=== PATIENT | female | born 1955 | race Caucasian/White ===

== ENCOUNTER 2023-01-09 13:35 | Observation (INO) | payer MEDICARE ==
[~2023-01-09] VITALS: Ht 162.6 cm; Wt 73.0 kg
[2023-01-09] MEDS ORDERED: ACETAMINOPHEN 325 MG TAB PO PRN ×2 (14:30)
[2023-01-09] MEDS ORDERED: ONDANSETRON 4MG INJ IV PRN (14:30)
[2023-01-09] MEDS ORDERED: NITROGLYCERIN 0.4 MG SL TAB SL PRN (14:30)
[2023-01-09 14:33] LABS: BASOPHILS # (AUTO) 0.04 K/uL (0.00-0.20); BASOPHILS % (AUTO) 0.6 % (0.0-5.0); EOSINOPHILS # (AUTO) 0.05 K/uL (0.00-0.70); EOSINOPHILS % (AUTO) 0.7 % (0.0-8.0); HEMATOCRIT 39.5 % (36-48); IMMATURE GRANULOCYTE ABSOLUTE 0.03 K/uL (0-1); LYMPHOCYTES # (AUTO) 1.8 K/uL (1.0-4.8); LYMPHOCYTES % (AUTO) 25.4 % (21.0-51.0); MEAN CORPUSCULAR HEMOGLOBIN 32.1 pg (27.0-33.0); MEAN CORPUSCULAR HGB CONC 34.7 g/dL (32.0-36.0); MEAN CORPUSCULAR VOLUME 92.5 fL (79-99); MONOCYTES # (AUTO) 0.4 K/uL (0.1-1.0); MONOCYTES % (AUTO) 5.8 % (3.0-13.0); NEUTROPHILS # (AUTO) 4.9 K/uL (1.8-7.7); NEUTROPHILS % (AUTO) 67.1 % (40.0-77.0); PLATELET COUNT (AUTO) 252 K/uL (130-400); RED BLOOD CELL COUNT(AUTO) 4.27 MIL/uL (4.00-5.50); RED CELL DISTRIBUTION WIDTH 13.4 % (11.0-15.5); WHITE BLOOD COUNT (AUTO) 7.2 K/uL (4.8-10.8)
[2023-01-09 14:43] LABS: CREATININE 0.9 mg/dL (0.5-1.5)
[2023-01-09 14:45] LABS: HEMOGLOBIN A1C 5.9 % (4.0-6.0)
[2023-01-09 14:47] LABS: ALBUMIN 4.1 g/dL (3.5-5.0); BILIRUBIN,TOTAL 0.4 mg/dL (0.2-1.0); TOTAL PROTEIN, SERUM 7.5 g/dL (6.0-8.3)
[2023-01-09] MEDS: 0.9%NACL 1000ML 1,000 ML IV SCH (14:55)
[2023-01-09] MEDS ORDERED: IOHEXOL-350 50ML VIAL IV ONE (16:23)
[2023-01-09] MEDS ORDERED: IOHEXOL 350 MG/ML 100ML INFUS..BTL IV ONE (16:23)
[2023-01-09] MEDS: IPRATROPIUM 0.5 MG/2.5 ML INH IH SCH (18:29)
[2023-01-09 18:31] VITALS: PULSE 72; RESP 18
[2023-01-09 18:32] VITALS: PULSE 72; RESP 18; O2SAT 98
[2023-01-09] MEDS: METOPROLOL TARTRATE 25 MG TAB PO SCH (20:53)
[2023-01-09] MEDS: FAMOTIDINE 20MG VIAL IV SCH (20:53)
[2023-01-09] MEDS ORDERED: ATORVASTATIN 40 MG TABLET PO SCH (21:00)
[2023-01-10 00:45] VITALS: PULSE 76; RESP 18
[2023-01-10] MEDS: IPRATROPIUM 0.5 MG/2.5 ML INH IH SCH ×3 (00:46→18:00)
[2023-01-10 03:39] LABS: HEMATOCRIT 37.6 % (36-48); MEAN CORPUSCULAR HEMOGLOBIN 31.8 pg (27.0-33.0); MEAN CORPUSCULAR HGB CONC 33.2 g/dL (32.0-36.0); MEAN CORPUSCULAR VOLUME 95.7 fL (79-99); RED BLOOD CELL COUNT(AUTO) 3.93 MIL/uL (4.00-5.50); RED CELL DISTRIBUTION WIDTH 13.3 % (11.0-15.5); WHITE BLOOD COUNT (AUTO) 7.2 K/uL (4.8-10.8)
[2023-01-10] MEDS: 0.9%NACL 1000ML 1,000 ML IV SCH (03:42)
[2023-01-10 03:59] LABS: ALBUMIN 3.6 g/dL (3.5-5.0); BILIRUBIN,TOTAL 0.3 mg/dL (0.2-1.0); CREATININE 0.9 mg/dL (0.5-1.5); TOTAL PROTEIN, SERUM 6.7 g/dL (6.0-8.3)
[2023-01-10 06:40] VITALS: PULSE 77; RESP 18
[2023-01-10] MEDS ORDERED: NICOTINE 21 MG/ 24 HR PATCH TD SCH (09:00)
[2023-01-10] MEDS ORDERED: ENOXAPARIN SODIUM 30 MG/0.3 ML SQ SCH (09:00)
[2023-01-10] MEDS ORDERED: ASPIRIN 81MG CHEW TAB PO SCH (09:00)
[2023-01-10] MEDS: FAMOTIDINE 20MG VIAL IV SCH (09:48)
[2023-01-10] MEDS: METOPROLOL TARTRATE 25 MG TAB PO SCH (09:48)
[2023-01-10 11:27] VITALS: PULSE 73; RESP 18
[2023-01-10 14:43] VITALS: BP 128/78; PULSE 78; RESP 18; O2SAT 99
== END 2023-01-10 15:40 | disposition home or self-care (01) ==
LOC: EDH 13:35 → DIRECT 14:04
PROVIDERS: ADMIT Hospitalist; ATTEND Hospitalist
DX: R07.89 Other chest pain (principal); K55.1 Chronic vascular disorders of intestine; I10 Essential (primary) hypertension; J44.9 Chronic obstructive pulmonary disease, unspecified; E78.5 Hyperlipidemia, unspecified; I70.0 Atherosclerosis of aorta; I71.40 Abdominal aortic aneurysm, without rupture, unspecified; F17.200 Nicotine dependence, unspecified, uncomplicated; R06.02 Shortness of breath; Z90.710 Acquired absence of both cervix and uterus; Z88.1 Allergy status to other antibiotic agents; Z88.8 Allergy status to other drugs, medicaments and biological substances; Z98.891 History of uterine scar from previous surgery; Z79.899 Other long term (current) drug therapy; Z98.890 Other specified postprocedural states
CPT/HCPCS: 93356; 96374; 96361; 83036; 84484 ×3; 80053 ×2; 83880; 82140; 85025; 36415 ×2; 71045; 75635; 93306; 93005; 94640 ×4; 94664; 96376; 96372; 85027; G0378 ×25; G0379; J3490 ×2; J7030; Q9967 ×2; J1650